=== PATIENT | female | born 1955 | race Caucasian/White ===

== ENCOUNTER 2020-12-19 01:38 | Day surgery (SDC) | payer OTHER, SELFPAY ==
[2020-12-06 10:30] VITALS: BMI 26.7
[2020-12-19 06:30] VITALS: BP 143/80; PULSE 91; RESP 14; TEMP 36.4; O2SAT 98; BMI 26.5
[2020-12-19] MEDS: LACTATED RINGERS 1,000 ML 150 ML IV CONT (06:44)
--- NOTE | 2020-12-19 07:10 | P.PNAN_ITS ---
Anes - Initial Pre Proc Eval Procedure: Operation Date: 12/19/20 07:30 Proposed Procedures p Screening Colonoscopy - Riky Thomas MD Date/Time: 12/19/20 07:10 Surgeon: Riky Thomas MD Pre Op Diagnosis: neoplasm screening Patient Data Age: 65 Gender: F Height: 1.7 m Weight: 76.9 kg Last Vital Signs Temp 97.6 F 12/19/20 06:30 Pulse 91 12/19/20 06:30 Resp 14 12/19/20 06:30 BP 143/80 H 12/19/20 06:30 Pulse Ox 98 12/19/20 06:30 Allergies Allergy/AdvReac Type Severity Reaction Status Date / Time thimerosal Allergy Unknown Hives Verified 12/19/20 06:29 Home Medications Medication Instructions Recorded Confirmed Type cholecalciferol (vitamin D3) 1,250 1,250 mcg PO WEEKLY 11/07/20 12/19/20 History mcg (50,000 unit) capsule multivitamin with minerals 1 tablet PO DAILY 11/07/20 12/19/20 History Patient hx anesthesia problems: none Family hx anesthesia problems: none Results Review: All pre-operative results and documents have been reviewed as part of the pre-operative evaluation. [facility] Past Medical History Medical History (Updated 11/16/20 @ 18:15 by Renee Flowers DO) Hyperlipidemia Vitamin D deficiency Surgical History Surgical History History of cholecystectomy Family History Family History Mother Hypertension Father Family history of elevated blood lipids Grandparent Family history of malignant neoplasm Other Diabetes mellitus Family history of malignant neoplasm of male breast Social History Social History Smoking status: Never smoker Second hand tobacco smoke exposure: No Alcohol intake: current Drinks per week: 3 Alcohol use details: wine,beer Substance use: never Substance use type: does not use Living arrangements: with family Gender identity (if verbalized by the patient): Female Spiritual care concerns: No Agree to blood products: Yes Anes - Eval Final PreProcedure Day of Procedure 12/19/20 07:10 Patient weight: overweight Heart: regular rate and rhythm Lungs: clear to auscultation Airway: Mallampati scale class II Neurological: alert and oriented Last oral intake: >/= 8 hours ASA classification: II Emergent: no Anesthetic plan: proceed Anesthesia type and monitoring: general GIVS and standard monitoring Results Review: All pre-operative results and documents have been reviewed as part of the pre-operative evaluation. Informed Consent: The patient's anesthetic plan and its attendant risks and benefits were discussed with the patient/family/POA. Questions were solicited and answers provided to the satisfaction of the patient/family/POA.
--- NOTE | 2020-12-19 07:20 | PM.HPGS ---
History of Present Illness History of Present Illness Consent: Risks, benefits, and alternatives have been discussed and questions answered. Patient agrees to proceed with procedure. Chief complaint: neoplasm screening Narrative: Suzan Warren is a 65 year old female Referred for colon cancer screening Review of Systems Review of Systems: All systems reviewed & are unremarkable except as noted in HPI and below PMFSH Past Medical History Medical History (Updated 12/19/20 @ 07:21 by Riky Thomas MD) Hyperlipidemia Vitamin D deficiency Surgical History Surgical History History of cholecystectomy Family History Family History Mother Hypertension Father Family history of elevated blood lipids Grandparent Family history of malignant neoplasm Other Diabetes mellitus Family history of malignant neoplasm of male breast Social History Social History Smoking status: Never smoker Second hand tobacco smoke exposure: No Alcohol intake: current Drinks per week: 3 Alcohol use details: wine,beer Substance use: never Substance use type: does not use Living arrangements: with family Gender identity (if verbalized by the patient): Female Spiritual care concerns: No Agree to blood products: Yes Meds Home Medications and Allergies Home Medications Medication Instructions Recorded Confirmed Type cholecalciferol (vitamin D3) 1,250 1,250 mcg PO WEEKLY 11/07/20 12/19/20 History mcg (50,000 unit) capsule multivitamin with minerals 1 tablet PO DAILY 11/07/20 12/19/20 History Allergies Allergy/AdvReac Type Severity Reaction Status Date / Time thimerosal Allergy Unknown Hives Verified 12/19/20 06:29 Vital Signs Vital Signs - 24 hr 12/19/20 06:30 Temperature 36.4 C Pulse Rate 91 Respiratory Rate 14 Blood Pressure 143/80 H Pulse Oximetry 98 Exam Resp: Auscultation: clear to auscultation bilaterally Cardio: Rate: regular rate Rhythm: regular rhythm GI: GI Palp: Yes Soft to palpation and No Tenderness to palpation present (GI) Assessment and Plan Assessment and plan (1) Colon cancer screening: Code(s): Z12.11 - Encounter for screening for malignant neoplasm of colon Status: Acute Assessment and Plan: Colonoscopy with possible biopsy or polypectomy or cautery or injection of substances.
[2020-12-19 07:51] VITALS: BP 135/71; PULSE 82; RESP 20; O2SAT 99
[2020-12-19 08:01] VITALS: BP 140/79; PULSE 73; RESP 20; O2SAT 99
[2020-12-19 08:11] VITALS: BP 143/84; PULSE 72; RESP 17; O2SAT 100
== END 2020-12-19 08:20 | disposition home or self-care (01) ==
PROVIDERS: PCP Family Medicine; Visit Provider Internal Medicine Gastroenterology
PROC: 0DJD8ZZ Inspection of Lower Intestinal Tract, Via Natural or Artificial Opening Endoscopic (ICD-10-PCS; CPT 45378; principal; 2020-12-19 07:30)
DX: Z12.11 Encounter for screening for malignant neoplasm of colon (principal); D17.5 Benign lipomatous neoplasm of intra-abdominal organs; K57.30 Diverticulosis of large intestine without perforation or abscess without bleeding; E78.5 Hyperlipidemia, unspecified; E55.9 Vitamin D deficiency, unspecified
CPT/HCPCS: 45380; 88305; J2704; J7120

== ENCOUNTER 2021-10-07 07:26 | Outpatient (CLI) | payer OTHER, SELFPAY ==
--- NOTE | ~2021-10-07 | US_ITS ---
EXAMINATION: US pelvic complete w TV DATE: 10/07/2021 08:43 INDICATION: Pelvic pain Comparison:No prior studies for comparison. TECHNIQUE: Multiple transabdominal and endovaginal sonographic images of the pelvis performed. FINDINGS: The uterus measures 6.6 x 4.9 x 2 cm. The endometrial complex measures 1.5 mm. The right ovary ovary is not visualized. Left ovary is atrophic measuring 1.7 x 1.3 x 1.6 cm and cont ains a 1.4 cm cyst. There is no free fluid in the pelvis. There are no abnormal masses seen on either side. IMPRESSION: 1. Unremarkable pelvic ultrasound. Reviewed, dictated and finalized at location A.
== END 2021-10-07 07:27 | disposition home or self-care (01) ==
PROVIDERS: PCP Family Medicine; Visit Provider Nurse Practitioner
DX: R10.2 Pelvic and perineal pain (principal)
CPT/HCPCS: 76830; 76856

== ENCOUNTER 2022-02-02 14:52 | Outpatient (CLI) | payer MEDICARE, SELFPAY ==
--- NOTE | ~2022-02-02 | DEXA_ITS ---
Bone Density Report Name: ANGELA RODRÍGUEZ Age: 66 Sex: Female Ethnicity: White Date of : 1955 Indication: postmenopausal; screening for osteoporosis; height loss; Referring Provider: RAY, TAMMIE Study: Bone densitometry was performed. Exam Date: February 02, 2022 Accession number: [id number] Bone Density: Region BMD T-score Z-score Classification AP Spine(L1-L4) 0.960 -0.8 1.0 Normal Femoral Neck (Left) 0.709 -1.3 0.3 Osteopenia Total Hip (Left) 0.831 -0.9 0.3 Normal Femoral Neck (Right) 0.729 -1.1 0.4 Osteopenia Total Hip (Right) 0.863 -0.7 0.6 Normal Total Hip Mean 0.847 -0.8 0.5 Normal World Health Organization criteria for BMD impression classify patients as: Normal (T-score at or above -1.0), Osteopenia (T-score between -1.0 and -2.5), or Osteoporosis (T-score at or below -2.5). 10-year Fracture Risk(1): Major Osteoporotic Fracture 8.2% Hip Fracture 0.7% Reported Risk Factors: [place] (), Neck BMD=0.709, BMI=29.0 (1) FRAX(R) Version 3.08. Fracture probability calculated for an untreated patient. Fracture probability may be lower if the patient has received treatment. Clinical Information Provided by Patient: Patient maximum height was 67 Menopause Age: 53 Does not regularly consume dairy products Drinks caffeinated beverages Onset of menses at age 14 Number of children 1 Impression: The patient has low bone mass, based on the Left Femoral Neck T-score. The patient has an estimated ten-year risk of hip fracture of 0.7% and an estimated ten-year risk of major fracture of 8.2%, based on the WHO FRAX algorithm. Discussion: BONE DENSITY IS LOW AT ONE OR MORE SKELETAL SITES. This patient's lowest T-score is low at one or more skeletal sites. It meets the World Health Organization's (WHO) criteria for ?low bone mass? (T-score between -1.0 and -2.5). The patient's 10-year risk of fracture as calculated by FRAX is less than the threshold where pharmacological therapy is recommended by the National Osteoporosis Foundation (NOF). However, all treatment decisions require clinical judgment and consideration of individual patient factors, including patient preferences, comorbidities, previous drug use, risk factors not captured in the FRAX model (e.g., frailty, falls, vitamin D deficiency, increased bone turnover, interval significant decline in bone density) and possible under or overestimation of fracture risk by FRAX. The patient should follow a healthful lifestyle (good nutrition with adequate calcium and vitamin D, and appropriate weight-bearing exercise). Follow-Up: Consider repeating this study in 2 to 3 years to reassess this patient's status, or sooner if there is some new clinical indication. Reported by: MARCO on 02/02/2022 3:35:00 PM. _
== END 2022-02-02 14:53 | disposition home or self-care (01) ==
PROVIDERS: Visit Provider Nurse Practitioner
DX: Z13.820 Encounter for screening for osteoporosis (principal); Z78.0 Asymptomatic menopausal state; M85.852 Other specified disorders of bone density and structure, left thigh; M85.851 Other specified disorders of bone density and structure, right thigh
CPT/HCPCS: 77080

== ENCOUNTER 2025-02-05 12:33 | Outpatient (CLI) | payer MEDICARE, SELFPAY ==
--- NOTE | ~2025-02-05 | DEXA_ITS ---
Bone Density Report Name: ANGELA RODRÍGUEZ Age: 69 Sex: Female Ethnicity: White Date of : 1955 Indication: postmenopausal; screening for osteoporosis; height loss; Referring Provider: Trina, Holly Study: Bone densitometry was performed. Exam Date: February 05, 2025 Accession number: [id number] Bone Density: Region BMD T-score Z-score Classification AP Spine(L1-L4) 0.938 -1.0 1.0 Normal Femoral Neck (Left) 0.649 -1.8 -0.1 Osteopenia Total Hip (Left) 0.711 -1.9 -0.5 Osteopenia Femoral Neck (Right) 0.701 -1.3 0.4 Osteopenia Total Hip (Right) 0.767 -1.4 0.0 Osteopenia Total Hip Mean 0.739 -1.7 -0.3 Osteopenia World Health Organization criteria for BMD impression classify patients as: Normal (T-score at or above -1.0), Osteopenia (T-score between -1.0 and -2.5), or Osteoporosis (T-score at or below -2.5). 10-year Fracture Risk(1): Major Osteoporotic Fracture 10% Hip Fracture 1.5% Reported Risk Factors: [place] (), Neck BMD=0.649, BMI=28.7 (1) FRAX(R) Version 3.08. Fracture probability calculated for an untreated patient. Fracture probability may be lower if the patient has received treatment. Previous Exams: -- Region Exam Age BMD T-score BMD Change BMD Change Date g/cm2 vs Baseline vs Previous -- AP Spine (L1-L4) 02/05/2025 69 0.938 -1.0 0.1% -2.3% 02/02/2022 66 0.960 -0.8 2.4% 2.4% 08/30/2018 62 0.937 -1.0 Total Hip(Left) 02/05/2025 69 0.711 -1.9 -14.7%* -14.5%* 02/02/2022 66 0.831 -0.9 -0.3% -0.3% 08/30/2018 62 0.833 -0.9 Total Hip(Right) 02/05/2025 69 0.767 -1.4 -4.9%* -11.1%* 02/02/2022 66 0.863 -0.7 7.0%* 7.0%* 08/30/2018 62 0.806 -1.1 -- *Denotes significance at 95% confidence level, LSC for AP Spine = 0.022 g/cm2, LSC for Total Hip = 0.027 g/cm2 Clinical Information Provided by Patient: Has used the following medications: Vitamin D, Calcium Patient maximum height was 67.5 Menopause Age: 52 No regular weight bearing exercise Drinks caffeinated beverages Onset of menses at age 14 Number of children 1 Impression: The patient has low bone mass, based on the Left Total Hip T-score. The patient has an estimated ten-year risk of hip fracture of 1.5% and an estimated ten-year risk of major fracture of 10%, based on the WHO FRAX algorithm. The BMD for the Total Hip(Left) decreased, changing by -14.5% since the last DXA exam. The BMD for the Total Hip(Right) decreased, changing by -11.1% since the last DXA exam. Discussion: BONE DENSITY IS LOW AT ONE OR MORE SKELETAL SITES. This patient's lowest T-score is low at one or more skeletal sites. It meets the World Health Organization's (WHO) criteria for ?low bone mass? (T-score between -1.0 and -2.5). The patient's 10-year risk of fracture as calculated by FRAX is less than the threshold where pharmacological therapy is recommended by the National Osteoporosis Foundation (NOF). However, all treatment decisions require clinical judgment and consideration of individual patient factors, including patient preferences, comorbidities, previous drug use, risk factors not captured in the FRAX model (e.g., frailty, falls, vitamin D deficiency, increased bone turnover, interval significant decline in bone density) and possible under or overestimation of fracture risk by FRAX. The patient should follow a healthful lifestyle (good nutrition with adequate calcium and vitamin D, and appropriate weight-bearing exercise). Follow-Up: Consider repeating this study in 2 years to reassess this patient's status, or sooner if there is some new clinical indication. Reported by: HUE on 02/05/2025 12:56:00 PM. Reviewed, dictated and finalized at location A.
== END 2025-02-05 12:34 | disposition home or self-care (01) ==
LOC: MICIMG 12:37
PROVIDERS: PCP Obstetrics & Gynecology Gynecology; Visit Provider Nurse Practitioner
DX: Z78.0 Asymptomatic menopausal state (principal); M85.852 Other specified disorders of bone density and structure, left thigh; M85.851 Other specified disorders of bone density and structure, right thigh
CPT/HCPCS: 77080